=== PATIENT | female | born 1985 | race Caucasian/White ===

== ENCOUNTER 2017-07-21 20:56 | Observation (INO) | payer MEDICAID ==
[~2017-07-21] VITALS: Ht 157.5 cm; Wt 50.0 kg
[~2017-07-21 20:56] MED LIST: FERROUS GLUCON324 MG PO; FLINTSTONE1 TAB.CHEW PO; IBUPROFEN600 MG PO; PERCOCET 5-3251 TAB PO; ZOLOFT50 MG PO
[2017-07-21 21:50] LABS: BASOPHILS 0.7 % (0-2); EOSINOPHILS 4.1 % (0-7); HEMATOCRIT 42.2 % (36.0-48.0); IMMATURE GRANULOCYTES 0.2 % (0-5); LYMPHOCYTES 35.8 % (15-50); MCH 28.3 pg (26.0-34.0); MCHC 33.2 g/dL (31.0-37.0); MCV 85.3 fL (80.0-100.0); MEAN PLATELET VOLUME 10.2 fL (7.4-10.4); MONOCYTES 7.1 % (2-11); NEUTROPHILS 52.1 % (40-80); RBC 4.95 10x6/uL (4.00-5.40); RDW 16.4 % (11.5-14.5); WBC 12.1 10x3/uL (4.8-10.8)
[2017-07-21 22:02] LABS: PLATELET COUNT 348 10x3/uL (130-400)
[2017-07-21 22:13] LABS: ALBUMIN 3.7 g/dL (3.4-5.0); ALKALINE PHOSPHATASE 76 U/L (46-116); ALT (SGPT) 26 U/L (10-68); BILIRUBIN - TOTAL 0.14 mg/dL (0.2-1.3); CALC OSMOLALITY 287 mosm/kg (275-300); CALCIUM 9.2 mg/dL (8.5-10.1); CARBON DIOXIDE 29.8 mmol/L (21.0-32.0); CHLORIDE - SERUM 107 mmol/L (98-107); CREATININE - SERUM 0.8 mg/dL (0.6-1.3); GLUCOSE 93 mg/dL (74-106); POTASSIUM - SERUM 3.6 mmol/L (3.5-5.1); PROTEIN - SERUM 7.1 g/dL (6.4-8.2); SODIUM 145 mmol/L (136-145); UREA NITROGEN 10 mg/dL (7-18); eGFR NON AFRICAN AMERICAN 88 mL/min (90-120)
[2017-07-21 22:15] LABS: APPEARANCE HAZY (CLEAR); BILIRUBIN NEGATIVE (NEGATIVE); COLOR YELLOW (YELLOW); GLUCOSE NEGATIVE (NEGATIVE); KETONE NEGATIVE (NEGATIVE); NITRITE NEGATIVE (NEGATIVE); PROTEIN NEGATIVE (NEGATIVE); SPECIFIC GRAVITY 1.025 (1.005-1.020); UROBILINOGEN NORMAL (NORMAL)
[2017-07-21 22:16] LABS: RED CELLS - URINE >50 /hpf (0-5)
[2017-07-21 22:24] LABS: EPITHELIAL CELLS 0-5 /hpf (0-5)
[2017-07-21 22:25] LABS: BACTERIA FEW /hpf (NONE SEEN)
[2017-07-21 22:37] LABS: HCG URINE NEGATIVE (NEGATIVE)
[2017-07-21 22:47] LABS: AMYLASE - SERUM 18 U/L (25-115); LIPASE 88 U/L (73-393)
[2017-07-22 09:15] LABS: BASOPHILS 0.6 % (0-2); HEMATOCRIT 36.3 % (36.0-48.0); HEMOGLOBIN 11.7 g/dL (12-16); IMMATURE GRANULOCYTES 0.3 % (0-5); LYMPHOCYTES 32.5 % (15-50); MCH 27.9 pg (26.0-34.0); MCHC 32.2 g/dL (31.0-37.0); MCV 86.4 fL (80.0-100.0); MEAN PLATELET VOLUME 10.2 fL (7.4-10.4); MONOCYTES 6.3 % (2-11); NEUTROPHILS 56.3 % (40-80); RDW 16.5 % (11.5-14.5)
[2017-07-22 09:19] LABS: PLATELET COUNT 248 10x3/uL (130-400)
[2017-07-22 09:24] LABS: AMYLASE - SERUM 14 U/L (25-115); CALC OSMOLALITY 285 mosm/kg (275-300); CALCIUM 8.1 mg/dL (8.5-10.1); CARBON DIOXIDE 29.2 mmol/L (21.0-32.0); CHLORIDE - SERUM 110 mmol/L (98-107); CREATININE - SERUM 0.7 mg/dL (0.6-1.3); GLUCOSE 99 mg/dL (74-106); LIPASE 74 U/L (73-393); MAGNESIUM - SERUM 1.9 mg/dL (1.8-2.4); POTASSIUM - SERUM 3.7 mmol/L (3.5-5.1); SODIUM 144 mmol/L (136-145); UREA NITROGEN 9 mg/dL (7-18); eGFR NON AFRICAN AMERICAN > 90 mL/min (90-120)
[2017-07-22 19:41] VITALS: BP 130/96; Ht 157.5 cm; Wt 50.0 kg
[2017-07-22] MEDS ORDERED: PROZAC10 MG PO (20:02)
[2017-07-22] MEDS ORDERED: KLONOPIN1 MG PO (20:04)
[2017-07-22 21:51] VITALS: BP 162/98
[2017-07-22 22:24] VITALS: BP 153/109
[2017-07-22 23:47] VITALS: BP 123/81
[2017-07-23 07:13] LABS: ALBUMIN 3.2 g/dL (3.4-5.0); ALKALINE PHOSPHATASE 76 U/L (46-116); CARBON DIOXIDE 30.2 mmol/L (21.0-32.0); CHLORIDE - SERUM 112 mmol/L (98-107); CREATININE - SERUM 0.7 mg/dL (0.6-1.3); GLUCOSE 96 mg/dL (74-106); POTASSIUM - SERUM 4.1 mmol/L (3.5-5.1); PROTEIN - SERUM 6.2 g/dL (6.4-8.2); SODIUM 148 mmol/L (136-145); eGFR NON AFRICAN AMERICAN > 90 mL/min (90-120)
[2017-07-23 07:19] LABS: ALT (SGPT) 18 U/L (10-68); CALC OSMOLALITY 290 mosm/kg (275-300); CALCIUM 8.6 mg/dL (8.5-10.1); UREA NITROGEN 3 mg/dL (7-18)
[2017-07-23 07:26] LABS: BASOPHILS 0.7 % (0-2); EOSINOPHILS 4.3 % (0-7); HEMATOCRIT 39.8 % (36.0-48.0); HEMOGLOBIN 12.6 g/dL (12-16); IMMATURE GRANULOCYTES 0.1 % (0-5); LYMPHOCYTES 36.3 % (15-50); MCHC 31.7 g/dL (31.0-37.0); MEAN PLATELET VOLUME 10.9 fL (7.4-10.4); MONOCYTES 6.8 % (2-11); NEUTROPHILS 51.8 % (40-80); RDW 16.4 % (11.5-14.5); WBC 7.5 10x3/uL (4.8-10.8)
[2017-07-23 07:43] LABS: MCV 88.4 fL (80.0-100.0); PLATELET COUNT 299 10x3/uL (130-400)
[2017-07-23 08:24] VITALS: BP 158/96
[2017-07-23 12:02] VITALS: BP 147/93
[2017-07-23 16:29] VITALS: BP 137/97
[2017-07-23] MEDS ORDERED: PROBIOTIC1 EAC1 PO (18:00)
[2017-07-23] MEDS ORDERED: ULTRAM50 MG PO (18:00)
[2017-07-23] MEDS ORDERED: MIRALAX527 GM PO (18:00)
== END 2017-07-23 21:30 | disposition home or self-care (01) ==
LOC: D.ER 20:56 → OBSVTIME 07-22 00:56 → D.EDHOLD 07-22 00:56 → D.MS 07-22 20:00
PROVIDERS: Family Medicine; Surgery
DX: K56.1 Intussusception (principal); F41.8 Other specified anxiety disorders

== ENCOUNTER 2018-11-15 17:24 | Inpatient (IN) | payer MEDICAID ==
[~2018-11-15] VITALS: Ht 160 cm; Wt 51.8 kg
[~2018-11-15 17:24] MED LIST changes: +KLONOPIN1 MG PO; +MIRALAX527 GM PO; +PROBIOTIC1 EAC1 PO; +PROZAC10 MG PO; +ULTRAM50 MG PO
--- NOTE | 2018-11-15 17:25 | NUR ---
ASSESSMENT ED BEHAVIORAL HEALTH SCREENING BY OFELIA LOYA, DOCUMENTED UNDER [facility], UNABLE TO REMOVE NOTE.
[2018-11-15] MEDS ORDERED: PROZAC10 MG PO (17:27)
[2018-11-15] MEDS ORDERED: PROZAC40 MG PO (17:27)
--- NOTE | 2018-11-15 17:27 | NUR ---
SPOKE WITH [facility] AT POISION CONTROL AT THIS TIME.
[2018-11-15] MEDS ORDERED: LISINOPRIL10 MG PO (17:28)
--- NOTE | 2018-11-15 17:30 | NUR ---
PT PLACED IN BLUE PAPER SCRUBS. BELONGINGS REMOVED FROM PATIENT POSSESSION AND GIVEN TO FAMILY. PT PROVIDED URINE SAMPLE.
--- NOTE | 2018-11-15 17:38 | NUR ---
CONTACTED LINK FABRIC MACHINE OPERATOR FOR MENTAL HEALTH SCREENING.
[2018-11-15 18:00] LABS: UDS - AMPHET NEGATIVE QUAL (NEGATIVE); UDS - BARB NEGATIVE QUAL (NEGATIVE); UDS - BENZO POSITIVE QUAL (NEGATIVE); UDS - COCAINE NEGATIVE QUAL (NEGATIVE); UDS - OPIATE NEGATIVE QUAL (NEGATIVE); UDS - PCP NEGATIVE QUAL (NEGATIVE); UDS - THC NEGATIVE QUAL (NEGATIVE)
[2018-11-15 18:03] LABS: BASOPHILS 0.4 % (0-2); EOSINOPHILS 1.2 % (0-7); HEMATOCRIT 38.4 % (36.0-48.0); HEMOGLOBIN 13.3 g/dL (12-16); IMMATURE GRANULOCYTES 0.3 % (0-5); LYMPHOCYTES 17.8 % (15-50); MCH 30.3 pg (26.0-34.0); MCHC 34.6 g/dL (31.0-37.0); MCV 87.5 fL (80.0-100.0); MEAN PLATELET VOLUME 9.8 fL (7.4-10.4); MONOCYTES 5.9 % (2-11); NEUTROPHILS 74.4 % (40-80); RBC 4.39 10x6/uL (4.00-5.40); RDW 12.7 % (11.5-14.5); WBC 14.9 10x3/uL (4.8-10.8)
[2018-11-15 18:04] LABS: PLATELET COUNT 376 10x3/uL (130-400)
[2018-11-15 18:06] LABS: APPEARANCE CLEAR (CLEAR); BILIRUBIN NEGATIVE (NEGATIVE); COLOR YELLOW (YELLOW); GLUCOSE NEGATIVE (NEGATIVE); KETONE NEGATIVE (NEGATIVE); NITRITE NEGATIVE (NEGATIVE); PROTEIN NEGATIVE (NEGATIVE); SPECIFIC GRAVITY 1.015 (1.005-1.020); UROBILINOGEN NORMAL (NORMAL)
[2018-11-15 18:08] LABS: BACTERIA FEW /hpf (NONE SEEN); EPITHELIAL CELLS 0-5 /hpf (0-5); HCG URINE NEGATIVE (NEGATIVE); RED CELLS - URINE RARE /hpf (0-5); WHITE CELLS - URINE OCC /hpf (0-5)
--- NOTE | 2018-11-15 18:12 | NUR ---
According to the suicide assessment the patient rates high and she will need 1:1 observation.
[2018-11-15 18:17] LABS: ALBUMIN 3.8 g/dL (3.4-5.0); ALKALINE PHOSPHATASE 81 U/L (46-116); ALT (SGPT) 21 U/L (10-68); BILIRUBIN - TOTAL 0.37 mg/dL (0.2-1.3); CALC OSMOLALITY 283 mosm/kg (275-300); CALCIUM 8.6 mg/dL (8.5-10.1); CARBON DIOXIDE 27.7 mmol/L (21.0-32.0); CHLORIDE - SERUM 107 mmol/L (98-107); CREATININE - SERUM 0.6 mg/dL (0.6-1.3); GLUCOSE 98 mg/dL (74-106); MAGNESIUM - SERUM 2.1 mg/dL (1.8-2.4); POTASSIUM - SERUM 3.7 mmol/L (3.5-5.1); PROTEIN - SERUM 6.8 g/dL (6.4-8.2); SODIUM 143 mmol/L (136-145); UREA NITROGEN 9 mg/dL (7-18); eGFR NON AFRICAN AMERICAN > 90 mL/min (90-120)
[2018-11-15 18:25] VITALS: BP 139/88
--- NOTE | 2018-11-15 18:25 | NUR ---
PER MENTAL HEALTH SCREEN PT NEEDS ONE ON ONE MONITORING.
--- NOTE | 2018-11-15 18:48 | NUR ---
MENTAL HEALTH SITTER AT BEDSIDE AT THIS TIME.
--- NOTE | 2018-11-15 18:50 | NUR ---
PT BELONGINGS SENT WITH .
[2018-11-15 19:30] VITALS: BP 140/75
[2018-11-15 21:10] VITALS: BP 147/87
--- NOTE | 2018-11-15 21:10 | NUR ---
REC'D TO 2302 VIA W/C FROM ER. MOREAU AT . SEE ADMISSION HX AND ASSESSMENT. PT COOPERATIVE, DENIES SUICIDAL IDEATIONS AT THIS TIME. VSS. CM - SR WITH OCC PAC NOTED. PAIR OF EARRINGS IN MED LOCK DRAWN WITH PT LABEL PER PT REQUEST. RING ON R RING FINGER WILL NOT COME OFF.
[2018-11-15 21:40] VITALS: BP 147/87; BMI 19.9
[2018-11-15 22:00] VITALS: BP 127/82
[2018-11-15] MEDS ORDERED: [UNRECOGNIZED DRUG - OTHER] (22:10)
[2018-11-15 23:00] VITALS: BP 126/81
[2018-11-16] VITALS (22 sets, daily range): BP systolic 109–143; BP diastolic 71–92; Ht 160 cm; Wt 51.8 kg
--- NOTE | 2018-11-16 | NUR ---
RESTING WITH EYES CLOSED, VSS. SITTER AT BS.
--- NOTE | 2018-11-16 03:00 | NUR ---
REASSESSMENT PER FLOWSHEET, NO ACUTE CHANGES. AWAKENS EASILY, VSS. NO SIGN OF DISTRESS. SITTER AT BS.
--- NOTE | 2018-11-16 07:00 | NUR ---
REPORT RECEIVED. SHIFT ASSESSMENT COMPLETE. PT A&0, DENIES PAIN. ON ROOM AIR. CALL LIGHT IN REACH.
--- NOTE | 2018-11-16 10:10 | NUR ---
MORNING MEDICATIONS HAVE BEEN PROVIDED. PT REQUESTED REGULAR COLA. NONE ON UNIT, ONE OBTAINED FROM OTHER UNIT. PT DENIES ANY OTHER NEEDS. CALL LIGHT IN REACH.
--- NOTE | 2018-11-16 10:19 | NUR ---
[facility] WITH POISON CONTROL CALLED TO CHECK ON PT.
--- NOTE | 2018-11-16 17:19 | NUR ---
LET PATIENT KNOW THAT DUE TO HER LETTERS THAT THE BROUGHT UP THIS MORNING THAT DR LARRY RECOMMENDS INPATIENT PSYCH CARE. SHE STATES THAT THE LETTERS FROM SEVERAL MONTHS AGO WHEN SHE THOUGHT SHE WAS DYING FROM CANCER. 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 DENIES LETTERS ARE FROM SUICIDE ATTEMPT
--- NOTE | 2018-11-16 18:23 | MORECARE ---
CASE MANAGEMENT DISCHARGE SUMMARY PATIENT: BEAR YOUNG UNIT: [id number] ADM DATE: 11/15/18 AGE: 33 : 84 SEX: F ROOM/BED: D.2303 AUTHOR: DANN LEON PHYSICIAN: REFERRING PHYSICIAN: AMNDO ALEXANDER MD DATE OF SERVICE: 11/16/18 Discharge Plan Patient Name: BEAR YOUNG Facility: [facility]:[place] : 1985 Planned Disposition: Anticipated Discharge Date: Discharge Date: Expected LOS: Initial Reviewer: [email or web address] Initial Review Date: 11/15/2018 Generated: 11/16/18 7:22 pm External Providers External Provider: [facility]SF[facility] Next Contact Date: Service Request Date: Service Type: Resolution: Reviewer: Comments: Patient Name: BEAR YOUNG Page [phone] at 1823 All edits/amendments must be made on the electronic document DICTATION DATE: 11/16/181821 TELEPHONE SERVICES SALES REPRESENTATIVE: RAHEL 11/16/181821 RPT#: [id number] DC DATE: STATUS: ADM IN [facility] [address] [place] [address] END OF REPORT
--- NOTE | 2018-11-16 18:31 | MORECARE ---
CASE MANAGEMENT DISCHARGE SUMMARY PATIENT: BEAR YOUNG UNIT: [id number] ADM DATE: 11/15/18 AGE: 33 : 83 SEX: F ROOM/BED: D.2303 AUTHOR: DANN LEON PHYSICIAN: REFERRING PHYSICIAN: MANDO DEL TORO MD DATE OF SERVICE: 11/16/18 Discharge Plan Patient Name: BEAR YOUNG [facility] : 1985 Planned Disposition: Anticipated Discharge Date: Discharge Date: Expected LOS: Initial Reviewer: [email or web address] Initial Review Date: 11/15/2018 Generated: 11/16/18 7:31 pm Comments DCP- Discharge Planning Updated by [email or web address]: Jazmín Escobedo on 11/16/18 5:[address] Nursing staff notified CM that psych has seen patient and recommends inpatient psych placement. Dr. Del Toro stated that patient is medically stable to transfer to inpatient psych facility. Patient is voluntary for placement. CM called transfer center and faxed records as requested. Pysch consult not available at this time. CM will continue to follow and assist as needed with discharge planning / needs. Last DP export: 11/16/18 5:23 pm Patient Name: BEAR YOUNG Page [phone] at 1831 All edits/amendments must be made on the electronic document DICTATION DATE: 11/16/181830 MOLDER AUTOMOBILE CARPETS: RAHEL 11/16/181830 RPT#: [id number] DC DATE: STATUS: ADM IN [facility] [address] [place] [address] END OF REPORT
--- NOTE | 2018-11-16 19:30 | NUR ---
REC'D TO CARE, DATA CONVERSION ANALYST PER FLOWSHEET. PT AWAKE AND ORIENTED. VSS. PIV SL D/C'D INTACT, PT AWAITING PSYCH PLACEMENT. COOPERATIVE, DENIES SUICIDE IDEATIONS. SITTER AT BS.
--- NOTE | 2018-11-16 19:55 | NUR ---
PT BEING ACCEPTED AT [facility]. REPORT PROVIDED TO RAMYA CABALLERO RN. IS BEING ACCEPTED BY DR. HAMILTON.
--- NOTE | 2018-11-16 20:21 | NUR ---
TRANSFER CENTER ARRANGED WITH [facility] FOR TRANSPORT. APPROX 1.5 HOUR WAIT
--- NOTE | 2018-11-16 20:47 | NUR ---
NOTIFIED OF PLAN FOR TRANSFER TO [facility] AND THE ITEMS PT REQUESTED HIM TO TAKE UP THERE.
--- NOTE | 2018-11-16 23:00 | NUR ---
PT RESTING QUIETLY, VSS. [facility] CALLED WITH ETA TO CUT OUT WORKER PT IN 30MIN.- AWARE.
--- NOTE | 2018-11-17 00:05 | NUR ---
EMS HERE, PT ON STRETCHER, BELONGINGS BACK WITH EARRING AND D/C PAPERWORK WITH EMS. PT DISCHARGED TO [facility].
--- NOTE | 2018-11-17 09:24 | CN ---
PATIENT NAME:BEAR YOUNG MEDICAL RECORD: [id number] : [birth year] LOCATION:JODEE.2303 ADMIT DATE: 11/15/18 ACCOUNT: [id number] CONSULTING PHYSICIAN: ISABELLA LARRY MD REFERRING PHYSICIAN: MANDO ALEXANDER MD DATE OF CONSULTATION: 11/16/2018 IDENTIFYING DATA: The patient is 33 years old and she is admitted to the hospital on a voluntary basis. CHIEF COMPLAINT: Overdose. HISTORY OF PRESENT ILLNESS: The patient took an overdose of lisinopril, Klonopin, and Valium. She did this after having an argument with her . They live in the same house, but are in the process of getting a divorce. The patient states she regrets doing this and no longer wants to hurt herself. She says she wants to go home. She endorses a lot of depressive symptoms, but attributes them to the stress she is under because of the divorce. She wrote a 4 page suicide note detailing what she is doing and why and giving very detailed instructions about how she wants her body disposed of and how she wants her body prepared for the . Clearly, this was not an impulsive act, but was thought out and planned meticulously. She very much misrepresented herself on the interview, which I can only assume is an indication that she is not stable and potentially still a very serious risk. ASSESSMENT: Major depression. PLAN: The patient denies thoughts of wanting to harm others and psychotic symptoms. She does have a history of psychiatric hospitalization, although it has been a long time. Apparently, she was a teenager. She denies any psychotic symptoms, and much to her credit, she has a history of alcoholism, but has not consumed alcohol for about 5 months. She is going to AA on a regular basis or at least she tells me she is. I recommend that she be maintained with a sitter and that once she is medically stabilized, she be transferred to acute inpatient psychiatric care at your earliest convenience. TRANSINT:[id number] Voice Confirmation ID: [id number] DOCUMENT ID: [id number] ISABELLA LARRY MD at 0924 CC: [id number] DICTATION DATE: 11/16/18 160 GAS TURBINE MECHANIC: 11/16/181956 DIS IN 11/17/18 [facility] [address] [facility] [address]
--- NOTE | 2018-11-17 17:34 | MORECARE ---
CASE MANAGEMENT DISCHARGE SUMMARY PATIENT: BEAR YOUNG UNIT: [id number] ADM DATE: 11/15/18 AGE: 33 : 83 SEX: F ROOM/BED: D.2303 AUTHOR: DANN LEON PHYSICIAN: REFERRING PHYSICIAN: MANDO DEL TORO MD DATE OF SERVICE: 11/17/18 Discharge Plan Patient Name: BEAR YOUNG [facility] [facility] 1985 Planned Disposition: Anticipated Discharge Date: Discharge Date: 11/17/2018 Expected LOS: Initial Reviewer: [email or web address] Initial Review Date: 11/15/2018 Generated: 11/17/18 6:34 pm DCP- Discharge Planning Updated by [email or web address]: Jazmín Escobedo on 11/16/18 5:[address] Nursing staff notified CM that psych has seen patient and recommends inpatient psych placement. Dr. Del Toro stated that patient is medically stable to transfer to inpatient psych facility. Patient is voluntary for placement. CM called transfer center and faxed records as requested. Pysch consult not available at this time. CM will continue to follow and assist as needed with discharge planning / needs. Last DP export: 11/16/18 5:31 pm Patient Name: BEAR YOUNG Page [id number] at 1734 All edits/amendments must be made on the electronic document DICTATION DATE: 11/17/181733 LEAD FIRE PROTECTION ENGINEER: RAHEL 11/17/181733 RPT#: [id number] DC DATE:11/17/18 STATUS: DIS IN [facility] [address] [place] [address] END OF REPORT
== END 2018-11-17 00:05 | disposition short-term general hospital (02) | DRG 918 ==
LOC: D.ER 17:24 → D.ICU 20:40
PROVIDERS: Emergency Medicine; ADMIT Internal Medicine Nephrology; ATTEND Internal Medicine Nephrology
DX: T42.4X2A Poisoning by benzodiazepines, intentional self-harm, initial encounter (principal); F17.203 Nicotine dependence unspecified, with withdrawal; F41.8 Other specified anxiety disorders; F42.9 Obsessive-compulsive disorder, unspecified; I10 Essential (primary) hypertension

== ENCOUNTER 2019-04-05 18:47 | Emergency (ER) | payer SELFPAY ==
[~2019-04-05] VITALS: Ht 160 cm; Wt 53.6 kg
[~2019-04-05 18:47] MED LIST changes: +LISINOPRIL10 MG PO; +PROZAC40 MG PO; +[UNRECOGNIZED DRUG - OTHER]
[2019-04-05 19:09] VITALS: Ht 160 cm; Wt 53.6 kg
[2019-04-05] MEDS ORDERED: KLONOPIN1 MG PO (19:11)
[2019-04-05] MEDS ORDERED: PROZAC40 MG PO (19:11)
[2019-04-05] MEDS ORDERED: LISINOPRIL20 MG PO (19:11)
[2019-04-05 19:34] LABS: BASOPHILS 0.5 % (0-2); EOSINOPHILS 3.8 % (0-7); HEMATOCRIT 40.8 % (36.0-48.0); HEMOGLOBIN 13.7 g/dL (12-16); IMMATURE GRANULOCYTES 0.2 % (0-5); LYMPHOCYTES 18.4 % (15-50); MCHC 33.6 g/dL (31.0-37.0); MCV 89.3 fL (80.0-100.0); MEAN PLATELET VOLUME 10.1 fL (7.4-10.4); MONOCYTES 5.7 % (2-11); NEUTROPHILS 71.4 % (40-80); PLATELET COUNT 404 10x3/uL (130-400); RBC 4.57 10x6/uL (4.00-5.40); RDW 13.8 % (11.5-14.5); WBC 13.6 10x3/uL (4.8-10.8)
[2019-04-05 19:47] LABS: CALC OSMOLALITY 286 mosm/kg (275-300); CALCIUM 8.7 mg/dL (8.5-10.1); CARBON DIOXIDE 32.4 mmol/L (21.0-32.0); CHLORIDE - SERUM 105 mmol/L (98-107); CREATININE - SERUM 0.9 mg/dL (0.6-1.3); GLUCOSE 99 mg/dL (74-106); POTASSIUM - SERUM 3.5 mmol/L (3.5-5.1); SODIUM 145 mmol/L (136-145); UREA NITROGEN 7 mg/dL (7-18); eGFR NON AFRICAN AMERICAN 76 mL/min (90-120)
[2019-04-05 19:53] LABS: APPEARANCE HAZY (CLEAR); BILIRUBIN NEGATIVE (NEGATIVE); COLOR YELLOW (YELLOW); GLUCOSE NEGATIVE (NEGATIVE); KETONE NEGATIVE (NEGATIVE); NITRITE NEGATIVE (NEGATIVE); PROTEIN NEGATIVE (NEGATIVE); UROBILINOGEN NORMAL (NORMAL)
[2019-04-05 19:54] LABS: BACTERIA MODERATE /hpf (NEGATIVE); MUCUS <1+ /lpf (NONE SEEN); RED CELLS - URINE 0-5 /hpf (0-5); YEAST >1+ WITH HYPHAE /hpf (NONE SEEN)
[2019-04-05 19:55] LABS: HCG URINE NEGATIVE (NEGATIVE)
[2019-04-05 19:56] LABS: ALBUMIN 3.7 g/dL (3.4-5.0); ALKALINE PHOSPHATASE 84 U/L (30-120); ALT (SGPT) 18 U/L (10-68); AMYLASE - SERUM 17 U/L (25-115); BILIRUBIN - TOTAL 0.31 mg/dL (0.2-1.3); LIPASE 100 U/L (73-393); PROTEIN - SERUM 6.9 g/dL (6.4-8.2)
[2019-04-05 19:58] LABS: TROPONIN-I < 0.017 ng/mL (0.000-0.060)
[2019-04-05] MEDS ORDERED: SMZ-TMP DS TABL1 TAB PO (20:13)
[2019-04-05 21:11] VITALS: BP 142/90
== END 2019-04-05 20:58 | disposition home or self-care (01) ==
LOC: D.ER 18:47
PROVIDERS: Family Medicine
DX: N39.0 Urinary tract infection, site not specified (principal); N76.0 Acute vaginitis; B37.89 Other sites of candidiasis; I10 Essential (primary) hypertension; Z72.0 Tobacco use

== ENCOUNTER 2019-04-07 18:18 | Emergency (ER) | payer SELFPAY ==
[~2019-04-07] VITALS: Ht 160 cm; Wt 53.6 kg
[~2019-04-07 18:18] MED LIST changes: +LISINOPRIL20 MG PO; +SMZ-TMP DS TABL1 TAB PO
[2019-04-07 18:28] VITALS: Ht 160 cm; Wt 53.6 kg
[2019-04-07 19:32] LABS: BASOPHILS 0.4 % (0-2); EOSINOPHILS 1.6 % (0-7); HEMOGLOBIN 13.1 g/dL (12-16); IMMATURE GRANULOCYTES 0.2 % (0-5); LYMPHOCYTES 18.7 % (15-50); MCH 29.9 pg (26.0-34.0); MCHC 33.6 g/dL (31.0-37.0); MEAN PLATELET VOLUME 10.3 fL (7.4-10.4); MONOCYTES 4.5 % (2-11); NEUTROPHILS 74.6 % (40-80); PLATELET COUNT 408 10x3/uL (130-400); RBC 4.38 10x6/uL (4.00-5.40); RDW 13.5 % (11.5-14.5); WBC 10.8 10x3/uL (4.8-10.8)
[2019-04-07 19:44] LABS: CALC OSMOLALITY 281 mosm/kg (275-300); CALCIUM 8.5 mg/dL (8.5-10.1); CARBON DIOXIDE 30.6 mmol/L (21.0-32.0); CHLORIDE - SERUM 106 mmol/L (98-107); CREATININE - SERUM 0.8 mg/dL (0.6-1.3); GLUCOSE 91 mg/dL (74-106); POTASSIUM - SERUM 3.5 mmol/L (3.5-5.1); SODIUM 143 mmol/L (136-145); eGFR NON AFRICAN AMERICAN 87 mL/min (90-120)
[2019-04-07 19:45] LABS: UREA NITROGEN 5 mg/dL (7-18)
[2019-04-07 19:53] LABS: ALBUMIN 3.6 g/dL (3.4-5.0); ALKALINE PHOSPHATASE 76 U/L (30-120); ALT (SGPT) 22 U/L (10-68); AMYLASE - SERUM 18 U/L (25-115); BILIRUBIN - TOTAL 0.19 mg/dL (0.2-1.3); LIPASE 85 U/L (73-393)
[2019-04-07 19:55] LABS: TROPONIN-I < 0.017 ng/mL (0.000-0.060)
[2019-04-07] MEDS ORDERED: MEDROL DOSE PACK4 MG PO (20:55)
[2019-04-07] MEDS ORDERED: KEFLEX500 MG PO (20:55)
[2019-04-07] MEDS ORDERED: MACROBID100 MG PO (20:55)
[2019-04-07 21:28] LABS: APPEARANCE HAZY (CLEAR); BILIRUBIN NEGATIVE (NEGATIVE); COLOR YELLOW (YELLOW); GLUCOSE NEGATIVE (NEGATIVE); KETONE NEGATIVE (NEGATIVE); NITRITE NEGATIVE (NEGATIVE); PROTEIN NEGATIVE (NEGATIVE); UROBILINOGEN NORMAL (NORMAL)
[2019-04-07 21:29] LABS: BACTERIA MODERATE /hpf (NEGATIVE); EPITHELIAL CELLS 0-5 /hpf (0-5); HCG URINE NEGATIVE (NEGATIVE); RED CELLS - URINE OCC /hpf (0-5); WHITE CELLS - URINE 0-5 /hpf (NEGATIVE)
[2019-04-07 22:40] VITALS: BP 145/90
== END 2019-04-07 22:40 | disposition home or self-care (01) ==
LOC: D.ER 18:18
PROVIDERS: Family Medicine
DX: R10.9 Unspecified abdominal pain (principal); N39.0 Urinary tract infection, site not specified; I10 Essential (primary) hypertension; Z72.0 Tobacco use